=== PATIENT | male | born 1965 | race Caucasian/White ===

== ENCOUNTER 2020-06-23 19:14 | Inpatient (IN) | payer BC ==
[~2020-06-23] VITALS: Ht 182.9 cm; Wt 131.4 kg
[2020-06-23 19:26] VITALS: BP 162/88
[2020-06-23 19:53] LABS: HEMOGLOBIN 15.1 gm/dL (14.0-18.0); MCH 30.1 pg (26.0-34.0); MCHC 34.4 g/dL (28.0-37.0); MCV 87.4 fL (80.0-100.0); MPV 8.4 fl. (7.2-11.1); NUCLEATED RBCS 0 /100WBC; PLATELET COUNT* 225 thou/uL (150-400); RBC 5.03 mil/uL (4.50-6.00); RDW-CV 13.2 % (10.5-14.5); WBC 5.9 thou/uL (4.0-11.0)
[2020-06-23 19:58] LABS: BE 0.5 mmol/L (-2 to +3); PCO2 36.8 mmHg (35.0-45.0); PO2 65.8 mmHg (75.0-100.0); pH 7.438 (7.340-7.450)
[2020-06-23 20:04] LABS: CALCIUM 8.1 mg/dL (8.5-10.1); CREATININE 0.7 mg/dL (0.6-1.3)
[2020-06-23 20:06] LABS: APTT 30.3 Seconds (25.0-31.3); PROTIME 10.8 Seconds (9.20-11.50)
[2020-06-23 20:15] LABS: ALBUMIN 3.5 g/dL (3.4-5.0); TOTAL BILIRUBIN 0.4 mg/dL (<0.1-1.0); TOTAL PROTEIN 7.6 g/dL (6.4-8.2)
[2020-06-23 20:19] LABS: INFLUENZA A ANTIGEN Negative (Negative); INFLUENZA B ANTIGEN Negative (Negative)
[2020-06-23 20:27] LABS: ABSOLUTE EOSINOPHILS 0.1 thou/uL (0.0-0.7); ABSOLUTE LYMPHOCYTES 0.9 thou/uL (0.8-5.3); ABSOLUTE MONOCYTES 0.9 thou/uL (0.0-1.2); PLATELET ESTIMATE ADEQUATE
[2020-06-23 23:00] VITALS: BP 140/60; BP 145/70
[2020-06-24 04:00] VITALS: BP 133/66
[2020-06-24 04:37] LABS: ABSOLUTE LYMPHOCYTES 0.4 thou/uL (0.8-5.3); ABSOLUTE MONOCYTES 0.1 thou/uL (0.0-1.2); ABSOLUTE NEUTROPHILS 2.1 thou/uL (1.6-8.1); BASOPHILS 0.1 %; EOSINOPHILS 0.1 %; HEMATOCRIT 40.8 % (42.0-52.0); HEMOGLOBIN 14.1 gm/dL (14.0-18.0); LYMPHOCYTES 14.8 %; MCHC 34.6 g/dL (28.0-37.0); MCV 86.6 fL (80.0-100.0); MONOCYTES 3.6 %; MPV 8.1 fl. (7.2-11.1); NUCLEATED RBCS 0 /100WBC; PLATELET COUNT* 206 thou/uL (150-400); POLYS 81.4 %; RBC 4.71 mil/uL (4.50-6.00); WBC 2.6 thou/uL (4.0-11.0)
[2020-06-24 05:53] LABS: ALBUMIN 3.1 g/dL (3.4-5.0); CALCIUM 7.9 mg/dL (8.5-10.1); CREATININE 0.7 mg/dL (0.6-1.3); POTASSIUM 4.2 mmol/L (3.5-5.1); TOTAL BILIRUBIN 0.3 mg/dL (<0.1-1.0)
[2020-06-24 08:00] VITALS: BP 149/78
--- NOTE | 2020-06-24 12:23 | EKG ---
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[place] : 1965 Requested By: Emily Qiu Order Number: [id number] MD: Hector Nesbitt Measurements Intervals [place] Rate: 80 P: 34 MA: 138 QRS: 29 QRSD: 88 T: 32 QT: 378 QTc: 436 Interpretive Statements Sinus rhythm Baseline wander in lead(s) I,III,aVL No previous ECG available for comparison Electronically Signed On 06-24-2020 12:23:40 TUBE ROOM SUPERVISOR by Hector Nesbitt [email or web address] <ELECTRONICALLY SIGNED> By: Hector Nesbitt MD, [facility] 06/24/20 1223 39 39 Hcetor Nesbitt MD, [facility] /EPI
[2020-06-24 16:58] VITALS: BP 155/74
[2020-06-24 21:04] VITALS: BP 149/74
[2020-06-25 00:17] VITALS: BP 136/65
[2020-06-25 04:06] LABS: ABSOLUTE LYMPHOCYTES 0.7 thou/uL (0.8-5.3); ABSOLUTE MONOCYTES 0.6 thou/uL (0.0-1.2); HEMATOCRIT 37.8 % (42.0-52.0); MCH 29.8 pg (26.0-34.0); MCHC 34.3 g/dL (28.0-37.0); MCV 86.8 fL (80.0-100.0); MONOCYTES 6.7 %; MPV 8.7 fl. (7.2-11.1); NUCLEATED RBCS 0 /100WBC; PLATELET COUNT* 234 thou/uL (150-400); POLYS 84.3 %; RBC 4.35 mil/uL (4.50-6.00); WBC 8.3 thou/uL (4.0-11.0)
[2020-06-25 04:42] LABS: CALCIUM 8.2 mg/dL (8.5-10.1); CREATININE 0.7 mg/dL (0.6-1.3); POTASSIUM 4.3 mmol/L (3.5-5.1)
[2020-06-25 05:00] VITALS: BP 146/71
[2020-06-25 08:30] VITALS: BP 147/64
[2020-06-25] MEDS ORDERED: VENTOLIN HFA 1818 GM INH (12:21)
[2020-06-25] MEDS ORDERED: DEXAMETHASONE1 MG PO (12:21)
[2020-06-25] MEDS ORDERED: DOXYCYCLINE 10100 MG PO (12:21)
[2020-06-25] MEDS ORDERED: PROTONIX40 M2 PO (12:21)
[2020-06-25 12:45] VITALS: BP 147/64
[2020-06-25 20:11] VITALS: BP 145/69
[2020-06-26 00:30] VITALS: BP 133/63
[2020-06-26 04:15] LABS: ABSOLUTE LYMPHOCYTES 0.6 thou/uL (0.8-5.3); ABSOLUTE MONOCYTES 0.4 thou/uL (0.0-1.2); ABSOLUTE NEUTROPHILS 7.2 thou/uL (1.6-8.1); BASOPHILS 0.1 %; HEMATOCRIT 38.4 % (42.0-52.0); HEMOGLOBIN 13.1 gm/dL (14.0-18.0); MCH 29.7 pg (26.0-34.0); MCHC 34.1 g/dL (28.0-37.0); MCV 87.3 fL (80.0-100.0); MONOCYTES 4.4 %; MPV 8.9 fl. (7.2-11.1); NUCLEATED RBCS 0 /100WBC; PLATELET COUNT* 257 thou/uL (150-400); POLYS 88.5 %; RDW-CV 12.9 % (10.5-14.5); WBC 8.2 thou/uL (4.0-11.0)
[2020-06-26 04:31] LABS: CALCIUM 7.7 mg/dL (8.5-10.1); CREATININE 0.7 mg/dL (0.6-1.3); MAGNESIUM 2.1 mg/dL (1.8-2.4); POTASSIUM 4.5 mmol/L (3.5-5.1); TOTAL BILIRUBIN 0.2 mg/dL (<0.1-1.0); TOTAL PROTEIN 6.3 g/dL (6.4-8.2)
[2020-06-26 08:00] VITALS: BP 139/67
[2020-06-26 12:00] VITALS: BP 134/62
[2020-06-26 17:00] VITALS: BP 142/72
[2020-06-27] VITALS: BP 148/90
[2020-06-27 04:21] LABS: ABSOLUTE LYMPHOCYTES 0.9 thou/uL (0.8-5.3); ABSOLUTE MONOCYTES 1.1 thou/uL (0.0-1.2); ABSOLUTE NEUTROPHILS 7.1 thou/uL (1.6-8.1); BASOPHILS 0.1 %; HEMOGLOBIN 13.1 gm/dL (14.0-18.0); LYMPHOCYTES 9.5 %; MCH 29.6 pg (26.0-34.0); MCHC 33.6 g/dL (28.0-37.0); MONOCYTES 12.2 %; MPV 9.2 fl. (7.2-11.1); NUCLEATED RBCS 0 /100WBC; PLATELET COUNT* 284 thou/uL (150-400); POLYS 78.2 %; RBC 4.43 mil/uL (4.50-6.00); RDW-CV 12.9 % (10.5-14.5); WBC 9.1 thou/uL (4.0-11.0)
[2020-06-27 04:30] VITALS: BP 132/71
[2020-06-27 04:44] LABS: CALCIUM 8.2 mg/dL (8.5-10.1); CREATININE 0.7 mg/dL (0.6-1.3); POTASSIUM 4.2 mmol/L (3.5-5.1)
[2020-06-27 08:00] VITALS: BP 137/71
[2020-06-27 10:48] VITALS: BP 137/71
--- NOTE | 2020-06-27 13:59 | CON ---
[address] [address] CONSULTATION Name: OWEN BOYCE Room: [address] IN ..#: [id number] Admission: 06/23/20 Attend Phys: Chanell Brumfield MD Discharge: 06/27/20 Date of : 67 Report #: [id number] THIS REPORT FOR: cc: Dilan Lieberman MD, Louis A. MD ~ Cole Morfin MD DATE OF SERVICE: 06/25/2020 REQUESTING PHYSICIAN: Dexter Payton MD INDICATION FOR CONSULTATION: COVID-19. HISTORY OF PRESENT ILLNESS: This is a 54-year-old gentleman with past medical history includes a history of obstructive sleep apnea. His body mass index is elevated to 39. He does use a CPAP at home. The patient was recently diagnosed with COVID-19 as an outpatient. He initially stayed home, eventually came to the Emergency Room on becoming more short of breath. The patient has been hypoxemic. He is currently requiring 3 liters of oxygen to maintain O2 saturation in the low 90s. He also has had a cough, there is not much sputum. The patient has had aches and pains. He does state that he feels weak. There is only minimal swelling of lower extremities. He has had some sleep complaints including disturbed sleep at night as well as sleepiness during the day. These complaints are at baseline. The patient answers to the negative for 12 questions for review of systems except as above. PAST MEDICAL HISTORY: Obstructive sleep apnea, on a CPAP at home; bragg to hand and arm; obesity, body mass index 39. SOCIAL HISTORY: Lifetime nonsmoker. No known history of heavy alcohol use or illegal drug use. CURRENT MEDICATIONS: List in [employer] reviewed. HOME MEDICATIONS: No home medications. ALLERGIES: No known drug allergies. FAMILY HISTORY: No pertinent family history. PHYSICAL EXAMINATION: GENERAL: He is alert, awake and oriented, does not appear to be in any distress. VITAL SIGNS: He is, however, requiring 3 liters of oxygen. O2 saturation is 92, pulse of 75 and a blood pressure of 147/64, temperature is 37.0, T-max 37.2. [place] [address] CONSULTATION Name: CARLIOWEN AGUILERA Gideon Room: [address]#: [id number] Admission: 06/23/20 Attend Phys: Chanell Brumfield MD Discharge: 06/27/20 Date of : 67 Report #: [id number] HEENT: Head is normocephalic and atraumatic. NECK: Does not show raised JVP. CHEST: Breath sounds mildly decreased bilaterally. No added sounds. HEART: Regular, no murmur. ABDOMEN: Soft and nontender. EXTREMITIES: Lower extremities, minimal edema, no calf tenderness. SKIN: Dry and intact. LABORATORY DATA: The patient's lab work is in [employer]. This is reviewed. The patient's CT chest is also in [facility]. This is reviewed. I reviewed both the films as well as the report. Chest x-ray also reviewed films as well as report. ASSESSMENT AND PLAN: 1. Acute hypoxemic respiratory failure secondary to COVID-19. At this time, recommend continue to titrate oxygen. The patient uses a CPAP at home and therefore, I strongly feel that he should continue on either a CPAP or BiPAP while asleep here as well. He states that his family will bring a CPAP. If this is not the case, then we will put him on one of our machines. 2. COVID-19. The patient is already on Solu-Medrol. I continued the same. He is also on nebulized bronchodilators considering that he is hypoxemic on room air. We will go ahead and start remdesivir. For now, I decided to hold off on convalescent plasma. We will watch LFTs. 3. Pulmonary infiltrates. He is on azithromycin and ceftriaxone and continue the same at this time. 4. Obstructive sleep apnea. See discussion above. 5. Mild fluid overload. We will give him one dose of Lasix. 6. Evaluation for thromboembolic phenomena. His CT chest is negative for pulmonary emboli. I will check D-dimer. If it is elevated, we can also do venous Dopplers. He only has trace edema on exam. 7. Deep vein thrombosis prophylaxis, he is on Lovenox. Thanks for this consultation. <ELECTRONICALLY SIGNED> By: Cole Morfin MD 06/27/20 1359 [id number] [id number] Morfin MD /nt
== END 2020-06-27 12:40 | disposition home or self-care (01) | DRG 177 ==
LOC: M.ERS 19:14 → M.TBA-ER 20:50 → M.2W 20:50
PROVIDERS: Internal Medicine; Internal Medicine Critical Care Medicine; Nurse Practitioner Family; Personal Emergency Response Attendant; ADMIT Internal Medicine; ATTEND Internal Medicine
PROC: XW033E5 Introduction of Remdesivir Anti-infective into Peripheral Vein, Percutaneous Approach, New Technology Group 5 (ICD-10-PCS; principal; 2020-06-25)
PROC: 5A09357 Assistance with Respiratory Ventilation, Less than 24 Consecutive Hours, Continuous Positive Airway Pressure (ICD-10-PCS; 2020-06-26)
DX: U07.1 COVID-19 (principal); J96.01 Acute respiratory failure with hypoxia; J12.89 Other viral pneumonia; R65.10 Systemic inflammatory response syndrome (SIRS) of non-infectious origin without acute organ dysfunction; G47.33 Obstructive sleep apnea (adult) (pediatric); E87.70 Fluid overload, unspecified; E66.01 Morbid (severe) obesity due to excess calories; Z68.39 Body mass index [BMI] 39.0-39.9, adult; Z79.899 Other long term (current) drug therapy